=== PATIENT | female | born 1930 | race Two or more races ===

== ENCOUNTER 2017-10-22 13:49 | Emergency (ER) | payer MEDICARE, OTHER ==
[~2017-10-22] VITALS: Ht 170.2 cm; Wt 81.6 kg
[2017-10-22 14:03] VITALS: BP 114/60
[2017-10-22] MEDS ORDERED: DIATR MEGLU/DIATRIZOATE SODIUM 30 ML BOTTLE (GASTROGRAPHIN) ONE (14:38)
--- NOTE | 2017-10-22 16:25 | NUR ---
CALLED [facility] FOR TRANSPORT TO [facility], ETA 183, TRIP #[id number]
--- NOTE | 2017-10-22 16:54 | NUR ---
CALLED [facility] FOR TRANSPORT, NO UNITS AVAILABLE.
--- NOTE | 2017-10-22 16:55 | NUR ---
CALLED [facility] FOR TRANSPORT, 2 HOUR ETA, WILL CALL ANOTHER COMPANY.
--- NOTE | 2017-10-22 16:58 | NUR ---
CALLED [facility] FOR TRANSPORT, 1830 ETA GIVEN, WILL CALL ANOTHER COMPANY.
--- NOTE | 2017-10-22 17:02 | NUR ---
CALLED [facility], ETA 30 MIN, ACCEPTED THIS TRANSPORT BECAUSE [facility] ETA WAS 1830.
--- NOTE | 2017-10-22 17:39 | NUR ---
CALLED [facility] TO CANCEL TRANSPORT.
== END 2017-10-22 17:38 ==
LOC: ER 14:03 → EDBD 14:03 → ER 17:38
DX: Z93.1 Gastrostomy status (principal); E11.9 Type 2 diabetes mellitus without complications; F41.9 Anxiety disorder, unspecified; I10 Essential (primary) hypertension; E03.9 Hypothyroidism, unspecified; F03.90 Unspecified dementia, unspecified severity, without behavioral disturbance, psychotic disturbance, mood disturbance, and anxiety; Z86.73 Personal history of transient ischemic attack (TIA), and cerebral infarction without residual deficits
CPT/HCPCS: 74018; A4606; Q9963; Z7610

== ENCOUNTER 2020-01-11 21:44 | Emergency (ER) | payer MEDICARE, OTHER ==
[~2020-01-11] VITALS: Ht 170.2 cm; Wt 81.6 kg
--- NOTE | 2020-01-11 21:59 | NUR ---
PATIENT CAME TO ER BED 10 FROM [facility] C/O AFIB RVR FROM EKG WITH NO SYMPTOMS AND A BASELINE OF AAOX1. PATIENT DOES HAVE TREMORS. PATIENT DOES NOT HAVE SOB. BREATHING EVENLY AND UNLABORED ON ROOM AIR. CONNECTED TO PEST CONTROL SPECIALIST.
[2020-01-11 22:03] LABS: BASOPHILS % (AUTO) 0.4 % (0.0-2.0); HEMATOCRIT 43 % (33-45); HEMOGLOBIN 13.9 g/dL (11.5-14.8); LYMPHOCYTES # (AUTO) 1.7 /CMM (0.8-4.8); LYMPHOCYTES % (AUTO) 23.3 % (20.0-44.0); MEAN CORPUSCULAR HGB CONC 33 g/dl (31.0-36.0); MEAN CORPUSCULAR VOLUME 94 fL (82-100); MONOCYTES # (AUTO) 0.6 /CMM (0.1-1.30); MONOCYTES % (AUTO) 8.2 % (2.0-12.0); NEUTROPHILS # (AUTO) 4.6 /CMM (1.8-8.9); NEUTROPHILS % (AUTO) 63.1 % (43.0-81.0); PLATELET COUNT (AUTO) 140 /CMM (150-450); RED BLOOD CELL COUNT(AUTO) 4.54 MIL/uL (4.0-5.2); WHITE BLOOD COUNT (AUTO) 7.3 K/uL (4.3-11.0)
--- NOTE | 2020-01-11 22:13 | NUR ---
CALLED FOR EKG MACHINE, ER EKG MACHINE IS BROKE.
[2020-01-11 22:14] LABS: CALCIUM, SERUM 9.3 mg/dL (8.5-10.1); CARBON DIOXIDE 31 mmol/L (21-32); CHLORIDE 111 mmol/L (98-107); CREATININE 0.8 mg/dL (0.6-1.3); GLUCOSE 132 mg/dL (74-106); POTASSIUM 3.4 mmol/L (3.5-5.1); SODIUM SERUM 146 mmol/L (136-145); UREA NITROGEN, BLOOD 20 mg/dL (7-18)
--- NOTE | 2020-01-11 22:31 | NUR ---
AT BEDSIDE FOR EKG.
[2020-01-11] MEDS ORDERED: LORAZEPAM INJ 2 MG/ML VIAL ONE (22:44)
[2020-01-11] MEDS: LORAZEPAM INJ 2 MG/ML VIAL IV ONE (22:48)
[2020-01-11] MEDS: IV NS 0.9% 500 ML BAG IV ONE (23:00)
--- NOTE | 2020-01-11 23:24 | NUR ---
[facility] CALLED FOR BLS TRANSPORT. ETA 2 HRS.
[2020-01-11 23:37] LABS: THYROID STIMULATING HORMONE 3.686 uIU/mL (0.358-3.74)
--- NOTE | 2020-01-12 00:32 | NUR ---
REPORT GIVEN TO TRANSPORT TEAM FOR [facility]. AND TRANSFERRING RESPONSIBILITY.
--- NOTE | 2020-01-12 00:33 | NUR ---
REPORT GIVEN TO KARIE DUNCAN AT [facility] FOR [facility].
[2020-01-12 01:04] VITALS: BP 134/76
== END 2020-01-12 01:05 | disposition home or self-care (01) ==
LOC: ER 21:45
DX: R25.1 Tremor, unspecified (principal); I10 Essential (primary) hypertension; E11.9 Type 2 diabetes mellitus without complications; F41.9 Anxiety disorder, unspecified; E03.9 Hypothyroidism, unspecified; F03.90 Unspecified dementia, unspecified severity, without behavioral disturbance, psychotic disturbance, mood disturbance, and anxiety; Z86.73 Personal history of transient ischemic attack (TIA), and cerebral infarction without residual deficits
CPT/HCPCS: 36415; 71045; 80048; 84439; 84443; 84484; 85025; 93005 ×2; 96374; 99285; J2060; J7040

== ENCOUNTER 2020-08-05 19:36 | Inpatient (IN) | payer MEDICARE, OTHER ==
[~2020-08-05] VITALS: Ht 162.6 cm; Wt 77.2 kg
--- NOTE | 2020-08-05 19:45 | NUR ---
PT BIBEMS C/O NON HEALING LEFT HEEL WOUND. PT AAOX0 NON VERBAL. PT BREATHING EVENLY, BUT EXPIRATORY WHEEZES ARE NOTED. PT STATING 99% ON 1L VIA NC. PT CONTRACTED AND AFEBRILE. WOUND ON LEFT HEEL HAS GREENISH AND DARK BROWN COLORING, NO FOUL ODOR NOTED. PT HAS SACRAL WOUND WITH SOME SLOUGHING NOTED. PT ATTACHED TO MONITOR AND POX. MADE COMFORTABLE WITH BLANKET AND CALLLIGHT WITHIN REACH. Addendum: 08/06/20 at 0713 by DONOVAN PT BIBEMS C/O NON HEALING LEFT HEEL WOUND. PT AAOX0 NON VERBAL. PT BREATHING EVENLY, BUT EXPIRATORY WHEEZES ARE NOTED. PT STATING 99% ON 1L VIA NC. PT CONTRACTED AND AFEBRILE. WOUND ON LEFT HEEL HAS GREENISH AND DARK BROWN COLORING, NO FOUL ODOR NOTED. PT ATTACHED TO MONITOR AND POX. MADE COMFORTABLE WITH BLANKET AND CALLLIGHT WITHIN REACH.
[2020-08-05] MEDS ORDERED: NS 0.9% IV ONE (20:30)
[2020-08-05] MEDS ORDERED: VANCOMYCIN 1 GM in IV D5W 250 ML IV ONE (20:30)
[2020-08-05] MEDS ORDERED: PIPERACILLIN /TAZOBACTAM 3.375 G in IV D5W 50 ML IV ONE (20:30)
[2020-08-05 20:37] LABS: BASOPHILS % (AUTO) 0.4 % (0.0-2.0); EOSINOPHILS % (AUTO) 0.8 % (0.0-6.0); HEMATOCRIT 44 % (33-45); HEMOGLOBIN 13.8 g/dL (11.5-14.8); LYMPHOCYTES # (AUTO) 0.9 /CMM (0.8-4.8); LYMPHOCYTES % (AUTO) 8.6 % (20.0-44.0); MEAN CORPUSCULAR HGB CONC 32 g/dl (31.0-36.0); MEAN CORPUSCULAR VOLUME 97 fL (82-100); MONOCYTES # (AUTO) 1.2 /CMM (0.1-1.30); MONOCYTES % (AUTO) 10.8 % (2.0-12.0); NEUTROPHILS # (AUTO) 8.8 /CMM (1.8-8.9); NEUTROPHILS % (AUTO) 79.4 % (43.0-81.0); PLATELET COUNT (AUTO) 178 /CMM (150-450); RED BLOOD CELL COUNT(AUTO) 4.53 MIL/uL (4.0-5.2)
--- NOTE | 2020-08-05 20:43 | NUR ---
xray at bedside
[2020-08-05] MEDS ORDERED: PIPERACILLIN /TAZOBACTAM 3.375 G VIAL IV ONE (20:45)
[2020-08-05] MEDS ORDERED: VANCOMYCIN 1 GM VIAL ONE (20:45)
[2020-08-05 20:52] LABS: CALCIUM, SERUM 8.8 mg/dL (8.5-10.1); CREATININE 0.8 mg/dL (0.6-1.3); POTASSIUM 4.2 mmol/L (3.5-5.1)
--- NOTE | 2020-08-05 20:59 | NUR ---
rt hand 20g
--- NOTE | 2020-08-05 21:00 | NUR ---
blood obtained and sent to lab
--- NOTE | 2020-08-05 21:05 | NUR ---
us at bedside.
[2020-08-05 21:11] LABS: ALBUMIN 2.4 g/dL (3.4-5.0); BILIRUBIN,DIRECT 0.2 mg/dL (0.0-0.2); BILIRUBIN,TOTAL 0.5 mg/dL (0.2-1.0); TOTAL PROTEIN, SERUM 6.6 g/dL (6.4-8.2)
--- NOTE | 2020-08-05 22:04 | NUR ---
covid swabs and urine sent to lab
[2020-08-05 22:40] LABS: BILIRUBIN,URINE Negative (NEGATIVE); COLOR,URINE YELLOW (YELLOW); LEUKOCYTE ESTERASE ,URINE Small (NEGATIVE); NITRITE, URINE Negative (NEGATIVE); PROTEIN,URINE Trace mg/dl (NEGATIVE); UGLUCOSE 500 MG/DL mg/dL (NEGATIVE)
[2020-08-05 23:08] LABS: BACTERIA,URINE 1+ /HPF (None Seen); RBC,URINE NONE SEEN /HPF (0-2); SQUAMOUS EPITHELIAL CELL,UR Few /HPF (None Seen)
[2020-08-05] MEDS ORDERED: Z GUARD REMEDY 2 OZ OINT TP PRN (23:30)
[2020-08-05] MEDS ORDERED: ZOLPIDEM TARTRATE 5 MG TABLET PO PRN (23:30)
[2020-08-05] MEDS ORDERED: MAG HYDROX/AL HYDROX/SIMETH 30 ML UDC PO PRN (23:30)
[2020-08-05] MEDS ORDERED: ENOXAPARIN SODIUM 30 MG/0.3 ML DISP.SYRIN SQ SCH (23:30)
[2020-08-05] MEDS ORDERED: ONDANSETRON HCL/PF 4 MG/2 ML VIAL IVP PRN (23:30)
[2020-08-05] MEDS: IV NS 0.9% 1,000 ML IV PRN (23:30)
[2020-08-05] MEDS ORDERED: MAGNESIUM HYDROXIDE 30 ML UDC PO PRN (23:30)
[2020-08-05] MEDS ORDERED: HYDROCODONE/APAP 5/325MG TABLET PO PRN (23:30)
--- NOTE | 2020-08-05 23:41 | NUR ---
CALL FROM LAB. RAPID COVID NEGATIVE.
[2020-08-05] MEDS ORDERED: ENOXAPARIN SODIUM 30 MG/0.3 ML DISP.SYRIN ONE (23:43)
--- NOTE | 2020-08-06 00:15 | NUR ---
pt readjusted and made comfortable
[2020-08-06] MEDS ORDERED: PIPERACILLIN /TAZOBACTAM 3.375 G in IV D5W 50 ML IV SCH ×2 (03:00→12:00)
[2020-08-06] MEDS ORDERED: PIPERACILLIN /TAZOBACTAM 3.375 G VIAL IV ONE (03:08)
--- NOTE | 2020-08-06 04:35 | NUR ---
pt changed and made comfortable
[2020-08-06 04:37] LABS: BASOPHILS % (AUTO) 0.2 % (0.0-2.0); EOSINOPHILS % (AUTO) 2.4 % (0.0-6.0); HEMATOCRIT 42 % (33-45); HEMOGLOBIN 13.7 g/dL (11.5-14.8); LYMPHOCYTES # (AUTO) 1.2 /CMM (0.8-4.8); LYMPHOCYTES % (AUTO) 12.6 % (20.0-44.0); MEAN CORPUSCULAR HGB CONC 32 g/dl (31.0-36.0); MEAN CORPUSCULAR VOLUME 96 fL (82-100); MONOCYTES # (AUTO) 1.3 /CMM (0.1-1.30); MONOCYTES % (AUTO) 12.8 % (2.0-12.0); NEUTROPHILS # (AUTO) 7.1 /CMM (1.8-8.9); PLATELET COUNT (AUTO) 175 /CMM (150-450); WHITE BLOOD COUNT (AUTO) 9.8 K/uL (4.3-11.0)
[2020-08-06 05:05] LABS: ALBUMIN 2.5 g/dL (3.4-5.0); BILIRUBIN,TOTAL 0.8 mg/dL (0.2-1.0); CREATININE 0.7 mg/dL (0.6-1.3); MAGNESIUM 2.3 mg/dL (1.8-2.4); PHOSPHORUS 2.7 mg/dL (2.5-4.9); POTASSIUM 4.6 mmol/L (3.5-5.1); TOTAL PROTEIN, SERUM 6.5 g/dL (6.4-8.2)
[2020-08-06] MEDS ORDERED: ATOR10TA GT (05:25)
[2020-08-06] MEDS ORDERED: LEVO25TA7 GT (05:25)
[2020-08-06] MEDS ORDERED: CLON0.1T GT (05:25)
[2020-08-06] MEDS ORDERED: LEVE250T2 GT (05:25)
[2020-08-06] MEDS ORDERED: PANT40TA49 GT (05:25)
[2020-08-06] MEDS ORDERED: LOSA50TA39 GT (05:25)
[2020-08-06] MEDS ORDERED: APIX5TAB4 GT (05:25)
[2020-08-06] MEDS ORDERED: VALB80CA GT (05:25)
[2020-08-06] MEDS ORDERED: METO25TA6 GT (05:25)
[2020-08-06] MEDS ORDERED: CLONIDINE HCL 0.1 MG TABLET GT PRN (05:30)
--- NOTE | 2020-08-06 07:05 | NUR ---
gave report to reagan baeza for kunal
[2020-08-06] MEDS ORDERED: LEVOTHYROXINE SODIUM 50 MCG TABLET ONE (08:15)
[2020-08-06] MEDS ORDERED: LEVETIRACETAM (250 MG) 250 MG TABLET PO ONE ×2 (08:16→16:06)
[2020-08-06] MEDS ORDERED: LEVOTHYROXINE SODIUM 25 MCG TABLET ONE (08:16)
[2020-08-06] MEDS ORDERED: PANTOPRAZOLE 40 MG TABLET.DR PO ONE (08:16)
[2020-08-06] MEDS ORDERED: METOPROLOL TARTRATE 25 MG TABLET ONE ×2 (08:16→16:06)
[2020-08-06] MEDS: LEVOTHYROXINE SODIUM 25 MCG TABLET GT SCH (08:24)
[2020-08-06] MEDS: PANTOPRAZOLE 40 MG TABLET.DR PO SCH (08:25)
[2020-08-06] MEDS: LEVETIRACETAM (250 MG) 250 MG TABLET PO SCH ×2 (08:25→16:11)
[2020-08-06] MEDS: METOPROLOL TARTRATE 25 MG TABLET GT SCH ×2 (08:25→16:08)
[2020-08-06] MEDS: PIPERACILLIN /TAZOBACTAM 3.375 G in IV D5W 100 ML IV SCH ×2 (08:32→16:11)
--- NOTE | 2020-08-06 09:00 | NUR ---
PATIENT SEEN AND EVALUATED BY WOUND NURSE. TURNED AND REPOSITIONED, PERICARE PROVIDED.
--- NOTE | 2020-08-06 10:51 | NUR ---
WOUND CARE CONSULT: PT PRESENTS WITH LOWER EXTREMITY CONTRACTURES, LEFT HEEL AND FOOT DRY ULCERS, PRESENT ON ADMISSION. DR WALLS NOTIFIED OF DPM CONSULT REQUEST. RECOMMENDATIONS MADE FOR SKIN PROTECTION. DISCUSSED WITH NURSING STAFF. PT IS INCONTINENT OF LOOSE STOOL. MD IN AGREEMENT WITH PLAN OF CARE.
--- NOTE | 2020-08-06 11:05 | NUR ---
NOTED PATIENT BLOOD IN STOOL, WILL SEND FECAL SAMPLE.
[2020-08-06] MEDS: GLUCERNA 1.5 1,000 ML BOTTLE NG PRN (11:33)
[2020-08-06 11:51] LABS: OCCULT BLOOD STOOL POSITIVE (NEGATIVE)
[2020-08-06] MEDS: IV NS 0.9% 1,000 ML IV PRN (12:25)
[2020-08-06] MEDS ORDERED: APIXABAN 5 MG TABLET ONE (16:06)
[2020-08-06] MEDS ORDERED: APIXABAN 5 MG TABLET GT SCH (17:00)
--- NOTE | 2020-08-06 17:03 | NUR ---
PATIENT CONTINUES ON IV FLUIDS, GT-FEEDING INFUSING AT 40ML/HR. HOB ELEVATED. VS STABLE. TURNED AND REPOSITIONED, DIAPER CHANGED. NO DISTRESS NOTED. KEPT COMFORTABLE.
--- NOTE | 2020-08-06 19:05 | NUR ---
REC'D REPORT FROM DAKOTA LI FOR [facility]
--- NOTE | 2020-08-06 19:44 | NUR ---
Roc gan in [facility] - 08/06/20 at 2332 by DONOVAN CALLED LAB FOR VANCO TROUGH DRAW
[2020-08-06] MEDS ORDERED: VANCOMYCIN 1 GM VIAL ONE (20:16)
[2020-08-06] MEDS: VANCOMYCIN 1 GM in IV D5W 250 ML IV SCH (20:30)
[2020-08-06] MEDS: ATORVASTATIN 10 MG TABLET GT SCH (21:30)
[2020-08-06] MEDS ORDERED: Valbenazine Tosylate (Ingrezza) 80 MG GT SCH (22:00)
--- NOTE | 2020-08-06 23:49 | NUR ---
GAVE REPORT TO DAKOTA CARDONA FOR [facility]
--- NOTE | 2020-08-07 00:15 | NUR ---
MS/RN OPENING NOTES RECEIVED REPORT FROM ER NURSE CRISTOBAL AT 2350HRS PATIENT COMING TO ROOM 200. PATIENT ARRIVED TO UNIT AT 0015HRS WITH NO INJURIES DURING TRANSPORT. PATIENT SAFELY TRANSFERRED TO BED. PATIENT IS ALERT AND ORIENTED X 1, EYES OPEN. PATIENTS BREATHING IS EVEN AND UNLABORED. NO SIGNS OF SOB OR RESPIRATORY DISTRESS NOTED. PATIENT HAS IV ACCESS ON RIGHT HAND #20G INTACT FLUSHING WELL. SAFETY MEASURES ARE IN PLACE, BED IS LOCKED AND PLACED IN THE LOWEST POSITION, CALL LIGHT IS WITHIN REACH. WILL CONTINUE TO MONITOR.
[2020-08-07] MEDS ORDERED: MEROPENEM 500 MG VIAL IV ONE (03:58)
[2020-08-07] MEDS: IV NS 0.9% 1,000 ML IV PRN ×2 (04:46→21:06)
[2020-08-07] MEDS ORDERED: MEROPENEM 500 MG in IV NS 0.9% 50 ML IV SCH ×2 (05:00→13:00)
[2020-08-07 05:18] VITALS: BP 120/65
--- NOTE | 2020-08-07 06:58 | NUR ---
MS/RN NOTES PER MD EDDY, HOLD PATIENT G TUBE FEEDING FOR NOW. ORDERS CARRIED OUT. PATIENT STABLE.
--- NOTE | 2020-08-07 06:59 | NUR ---
MS/RN CLOSING NOTES PATIENT RESTING IN BED. PATIENT IS ALERT AND ORIENTED X 1. PATIENT BREATHING IS EVEN AND UNLABORED. NO SIGNS OF SOB OR RESPIRATORY NOTED. PATIENT G TUBE FEEDING HAS BEEN HELD FOR NOW MD ORDERS. PATIENT HAS IV ACCESS ON RIGHT HAND #20G RUNNING NS AT 75 CC/HR. ALL NEED HAVE BEEN MET DURING SHIFT. SAFETY MEASURES ARE IN PLACE, BED IS LOCKED AND PLACED IN THE LOWEST POSITION, CALL LIGHT IS WITHIN REACH. WILL ENDORSE CARE TO DAY SHIFT NURSE.
[2020-08-07 07:20] LABS: BASOPHILS % (AUTO) 0.2 % (0.0-2.0); EOSINOPHILS % (AUTO) 4.4 % (0.0-6.0); HEMATOCRIT 37 % (33-45); HEMOGLOBIN 12.2 g/dL (11.5-14.8); LYMPHOCYTES # (AUTO) 1.4 /CMM (0.8-4.8); LYMPHOCYTES % (AUTO) 13.9 % (20.0-44.0); MEAN CORPUSCULAR HGB CONC 33 g/dl (31.0-36.0); MEAN CORPUSCULAR VOLUME 95 fL (82-100); MONOCYTES % (AUTO) 9.3 % (2.0-12.0); NEUTROPHILS # (AUTO) 7.5 /CMM (1.8-8.9); NEUTROPHILS % (AUTO) 72.2 % (43.0-81.0); PLATELET COUNT (AUTO) 158 /CMM (150-450); RED BLOOD CELL COUNT(AUTO) 3.95 MIL/uL (4.0-5.2); WHITE BLOOD COUNT (AUTO) 10.4 K/uL (4.3-11.0)
[2020-08-07 08:00] VITALS: BP 97/66
[2020-08-07 08:16] LABS: CALCIUM, SERUM 8.6 mg/dL (8.5-10.1); CREATININE 0.6 mg/dL (0.6-1.3); POTASSIUM 3.7 mmol/L (3.5-5.1)
[2020-08-07] MEDS: METOPROLOL TARTRATE 25 MG TABLET GT SCH ×2 (09:00→16:42)
[2020-08-07] MEDS: LEVOTHYROXINE SODIUM 25 MCG TABLET GT SCH (09:19)
[2020-08-07] MEDS: LEVETIRACETAM (250 MG) 250 MG TABLET PO SCH ×2 (09:19→16:37)
[2020-08-07] MEDS: PANTOPRAZOLE 40 MG TABLET.DR PO SCH (09:19)
--- NOTE | 2020-08-07 11:46 | NUR ---
PT'S STAT PT-INR AND PTT RESULT IS STILL PENDING AT THIS TIME.NOTIFIED LAB AND SPOKE TO BRETT OF LAB AND MADE AWARE TO PUT IN THE RESULTS STAT.
[2020-08-07] MEDS ORDERED: HEPARIN SODIUM, PORCINE 5000 UNITS/1 ML VIAL IV ONE (12:30)
[2020-08-07] MEDS: HEPARIN INFUSION/D5W 500 ML IV PRN (12:38)
[2020-08-07] MEDS: GLUCERNA 1.5 1,000 ML BOTTLE NG PRN (16:28)
[2020-08-07] MEDS: MEROPENEM 500 MG in IV NS 0.9% 100 ML IV SCH (17:47)
[2020-08-07 18:52] VITALS: BP 119/58
--- NOTE | 2020-08-07 19:30 | NUR ---
MS/RN OPENING NOTES RECEIVED PATIENT RESTING IN BED. PATIENT IS ALERT AND ORIENTED X 1. PATIENT BREATHING IS EVEN AND UNLABORED. NO SIGNS OF SOB OR RESPIRATORY NOTED. PATIENT G TUBE FEEDING IN PLACE NO RESIDUAL. PATIENT HAS IV ACCESS ON RIGHT HAND #20G RUNNING NS AT 75 CC/HR. SAFETY MEASURES ARE IN PLACE, BED IS LOCKED AND PLACED IN THE LOWEST POSITION, CALL LIGHT IS WITHIN REACH. WILL CONTINUE TO MONITOR THROUGH OUT SHIFT.
--- NOTE | 2020-08-07 19:32 | NUR ---
LAB CALLED FOR PT'S PTT RESULT SAYING IT WAS TOO HIGH :170 AND LAB WILL DO REDRAW.
--- NOTE | 2020-08-07 19:33 | NUR ---
PT HAS NO ACTIVE BLEEDING NOTED.WILL MONITOR.ENDORSED TO GENERAL OPHTHALMOLOGIST CARE.
[2020-08-07 20:00] VITALS: BP 126/75
[2020-08-07] MEDS: VANCOMYCIN 1 GM in IV D5W 250 ML IV SCH (21:02)
--- NOTE | 2020-08-07 21:30 | NUR ---
CRITICAL LAB RESULTS MS/RN NOTES LAB CALLED FOR RESULTS OF REPEAT DRAW OF PTT VALUE GREATER THAN 170 NEWS PRODUCTION ASSISTANT RUM PROCESSING OPERATOR CRISTOBAL NOTIFIED, ORDERED TO HOLD HEPARIN GTT. ORDERS CARRIED OUT HEPARIN GTT STOPPED SINCE 1930HRS WILL CONTINUE TO MONITOR PATIENT
[2020-08-07] MEDS: ATORVASTATIN 10 MG TABLET GT SCH (22:22)
[2020-08-08] MEDS: MEROPENEM 500 MG in IV NS 0.9% 100 ML IV SCH ×2 (04:38→17:37)
[2020-08-08] MEDS: ACETAMINOPHEN 325 MG TABLET PO PRN ×2 (04:49→23:30)
--- NOTE | 2020-08-08 05:00 | NUR ---
MS/RN NOTES PATIENT NOTED TO BE IN MILD DISCOMFORT. PATIENT GIVEN TYLENOL 650 MG. WILL CONTINUE TO MONITOR.
[2020-08-08 06:42] LABS: BASOPHILS % (AUTO) 0.4 % (0.0-2.0); EOSINOPHILS % (AUTO) 5.1 % (0.0-6.0); HEMATOCRIT 35 % (33-45); HEMOGLOBIN 11.8 g/dL (11.5-14.8); LYMPHOCYTES # (AUTO) 1.3 /CMM (0.8-4.8); LYMPHOCYTES % (AUTO) 17.8 % (20.0-44.0); MEAN CORPUSCULAR HGB CONC 33 g/dl (31.0-36.0); MEAN CORPUSCULAR VOLUME 94 fL (82-100); MONOCYTES # (AUTO) 0.8 /CMM (0.1-1.30); MONOCYTES % (AUTO) 10.2 % (2.0-12.0); NEUTROPHILS % (AUTO) 66.5 % (43.0-81.0); PLATELET COUNT (AUTO) 157 /CMM (150-450); RED BLOOD CELL COUNT(AUTO) 3.74 MIL/uL (4.0-5.2); WHITE BLOOD COUNT (AUTO) 7.5 K/uL (4.3-11.0)
--- NOTE | 2020-08-08 06:50 | NUR ---
MS/RN CLOSING NOTES PATIENT RESTING IN BED. PATIENT IS ALERT AND ORIENTED X 1. PATIENT BREATHING IS EVEN AND UNLABORED. NO SIGNS OF SOB OR RESPIRATORY NOTED. PATIENT G TUBE FEEDING IN PLACE 30CC RESIDUAL. PATIENT HAS IV ACCESS ON RIGHT HAND #20G RUNNING NS AT 75 CC/HR LEFT HAND IV FLUSHING WELL. NO SIGNS OF ACTIVE BLEEDING NOTED. ALL NEEDS MET DURING SHIFT. SAFETY MEASURES ARE IN PLACE, BED IS LOCKED AND PLACED IN THE LOWEST POSITION, CALL LIGHT IS WITHIN REACH. WILL ENDORSE CARE TO DAY SHIFT NURSE.
--- NOTE | 2020-08-08 07:00 | NUR ---
RN OPENING NOTE RECEIVED PT RESTING IN BED AT THIS TIME. AOX1. NON VERBAL. NO SOB NOTED, NO S/S OF ANY APPARENT DISTRESS NOTED, NO S/O PAIN AT THIS TIME. PT NOTED ON OXYGEN @2LPM VIA NC. IV ACCESS NOTED IN LFA G#20, INTACT, PATENT AND FLUSHING WELL.G-TUBE IN PLACE WITH NO RESIDUAL NOTED. ASPIRATIONS AND SAFETY PRECAUTIONS IN PLACE AND MAINTAINED AT ALL TIMES. BED IN LOWEST LOCKED POSITION, SIDE RAILS UP, HOB ELEVATED, TABLE AND CALL LIGHT WITHIN REACH. WILL CONTINUE TO MONITOR.
[2020-08-08 07:14] LABS: CALCIUM, SERUM 8.4 mg/dL (8.5-10.1); CREATININE 0.6 mg/dL (0.6-1.3); POTASSIUM 3.8 mmol/L (3.5-5.1)
[2020-08-08 08:00] VITALS: BP 129/70
[2020-08-08] MEDS: PANTOPRAZOLE 40 MG TABLET.DR PO SCH (08:28)
[2020-08-08] MEDS: LEVETIRACETAM (250 MG) 250 MG TABLET PO SCH ×2 (08:28→16:47)
[2020-08-08] MEDS: LEVOTHYROXINE SODIUM 25 MCG TABLET GT SCH (08:29)
[2020-08-08] MEDS: METOPROLOL TARTRATE 25 MG TABLET GT SCH ×2 (08:30→16:47)
[2020-08-08] MEDS: IV NS 0.9% 1,000 ML IV PRN (13:08)
[2020-08-08] MEDS: HEPARIN INFUSION/D5W 500 ML IV PRN (13:33)
--- NOTE | 2020-08-08 13:35 | NUR ---
APTT 29.1, PER PHARMACY RESUME HEPARIN @1350UNITS/HR. ORDERS READ BACK AND CARRIED OUT. WILL CONTINUE TO MONITOR AND CONTINUE WITH PLAN OF CARE
[2020-08-08 16:00] VITALS: BP 129/67
[2020-08-08] MEDS: GLUCERNA 1.5 1,000 ML BOTTLE NG PRN (17:05)
--- NOTE | 2020-08-08 17:15 | NUR ---
RECEIVED ORDERS FOR MIDLINE INSERTION FROM TWYLA RAMIREZ NURSE EMBRYOLOGY TEACHER MADE AWARE, ENTERED ORDERS. WILL CONTINUE WITH PLAN OF CARE
--- NOTE | 2020-08-08 18:38 | NUR ---
RN CLOSING NOTES PT RESTING IN BED COMFORTABLY AT THIS TIME AT THIS TIME. PT REMAINED STABLE THROUGHOUT SHIFT. PT ON OXYGEN @ 2LPM VIA NC SATURATING @ 100% AT THIS TIME. ALL CARE, NEED, MEDICATIONS AND TREATMENT ADMINISTERED ANTICIPATED PER ORDER. PT KEPT CLEAN AND DRY. BED BATH GIVEN, LINEN CHANGED AND KEPT CLEAN. PT REPOSITIONED Q2HR AND PRN. ASPIRATION, RESPIRATION, SEIZURE AND SAFETY PRECAUTION IN PLACE AND MAINTAINED AT ALL TIMES. BED IN LOWEST LOCKED POSITION, HOB ELEVATED, SIDE RAILS UP X 2, CALL LIGHT AND TABLE WITHIN REACH. WILL ENDORSE TO MANAGER MECHANICAL MAINTENANCE NURSE FOR [facility]
--- NOTE | 2020-08-08 19:30 | NUR ---
MS/RN OPENING NOTES RECEIVED PATIENT RESTING IN BED. PATIENT IS ALERT AND ORIENTED X 1, NON VERBAL. PATIENT BREATHING IS EVEN AND UNLABORED. NO SIGNS OF SOB OR RESPIRATORY NOTED. PATIENT G TUBE FEEDING IN PLACE 25CC RESIDUAL. PATIENT HAS IV ACCESS ON RIGHT HAND #20G RUNNING NS AT 75 CC/HR AND SUMMER MIDLINE HEPARIN GTT. NO SIGNS OF ACTIVE BLEEDING NOTED. SAFETY MEASURES ARE IN PLACE, BED IS LOCKED AND PLACED IN THE LOWEST POSITION, CALL LIGHT IS WITHIN REACH. WILL CONTINUE TO MONITOR THROUGH OUT SHIFT.
[2020-08-08 20:00] VITALS: BP 154/72
--- NOTE | 2020-08-08 20:00 | NUR ---
MED/RN NOTES 1944: PATIENT PTT RESULTS 60 NO CHANGES NO ACTIVE BLEEDING NOTES WILL CONTINUE TO MONITOR
[2020-08-08] MEDS: VANCOMYCIN 1 GM in IV D5W 250 ML IV SCH (21:33)
[2020-08-08] MEDS: ATORVASTATIN 10 MG TABLET GT SCH (22:39)
--- NOTE | 2020-08-08 23:26 | NUR ---
TELE/RN NOTES REPORT GIVEN TO DAKOTA FRANKLIN FOR [facility] PATIENT GOING TO ROOM 312
--- NOTE | 2020-08-09 00:05 | NUR ---
MS/RN NOTES PATIENT TRANSFERRED TO [address] [place] [address] [id number].
--- NOTE | 2020-08-09 00:10 | NUR ---
MS RN NOTES - TRANSFER FROM MS2 TO 3W RECEIVED REPORT FROM DULCE DUNCAN. PATIENT TRANSFERRED TO 3W VIA BED. PATIENT A/O X1; OPENS EYES TO NAME, NONVERBAL, MOANS. ON O2 2LPM VIA NASAL CANNULA; WHEEZING NOTED. GT PEG PATENT AND INTACT; GLUCERNA 1.2 @ 40ML/HR. L HAND #20; PATENT AND INTACT. SUMMER MIDLINE PATENT AND INTACT. DULCE DUNCAN ENDORSED THAT PATIENT IS NOTED WITH BRIGHT RED BLOODY BM. ASPIRATION AND SAFETY MEASURES IN PLACE: BED IN LOWEST LOCKED POSITION, SIDE RAILS UP X3, CALL LIGHT WITHIN REACH. WILL CONTINUE TO MONITOR.
--- NOTE | 2020-08-09 00:55 | NUR ---
MS RN NOTES - HEPARIN NOTIFIED [facility] SAP SOLUTION MANAGER CONSULTANT THAT PATIENT WAS NOTED WITH BRIGHT RED BLOODY STOOL. ORDERS TO HOLD HEPARIN FOR NOW. PTT @ 0745 ORDERED PER PROTOCOL.
[2020-08-09 01:00] VITALS: BP 137/72
[2020-08-09] MEDS: MEROPENEM 500 MG in IV NS 0.9% 100 ML IV SCH (05:52)
--- NOTE | 2020-08-09 06:41 | NUR ---
MS RN CLOSING NOTES PATIENT A/O X1; OPENS EYES TO NAME, NONVERBAL, MOANS. ON O2 2LPM VIA NASAL CANNULA; WHEEZING NOTED. GT PEG PATENT AND INTACT; GLUCERNA 1.2 @ 40ML/HR. R HAND #20; PATENT AND INTACT. SUMMER MIDLINE PATENT AND INTACT. ASPIRATION AND SAFETY MEASURES IN PLACE: BED IN LOWEST LOCKED POSITION, SIDE RAILS UP X3, CALL LIGHT WITHIN REACH. WILL ENDORSE SIL[facility]O TO ONCOMING MORNING RN.
[2020-08-09 07:08] LABS: BASOPHILS % (AUTO) 0.4 % (0.0-2.0); EOSINOPHILS % (AUTO) 3.8 % (0.0-6.0); HEMATOCRIT 37 % (33-45); HEMOGLOBIN 12.1 g/dL (11.5-14.8); LYMPHOCYTES # (AUTO) 1.3 /CMM (0.8-4.8); LYMPHOCYTES % (AUTO) 17.6 % (20.0-44.0); MEAN CORPUSCULAR HGB CONC 33 g/dl (31.0-36.0); MEAN CORPUSCULAR VOLUME 94 fL (82-100); MONOCYTES # (AUTO) 0.8 /CMM (0.1-1.30); NEUTROPHILS # (AUTO) 5.2 /CMM (1.8-8.9); NEUTROPHILS % (AUTO) 68.2 % (43.0-81.0); PLATELET COUNT (AUTO) 159 /CMM (150-450); RED BLOOD CELL COUNT(AUTO) 3.95 MIL/uL (4.0-5.2); WHITE BLOOD COUNT (AUTO) 7.6 K/uL (4.3-11.0)
[2020-08-09] MEDS: LEVOTHYROXINE SODIUM 25 MCG TABLET GT SCH (07:32)
[2020-08-09] MEDS: ACETAMINOPHEN 325 MG TABLET PO PRN (07:32)
[2020-08-09 08:00] VITALS: BP 150/75
[2020-08-09 08:01] LABS: CALCIUM, SERUM 8.7 mg/dL (8.5-10.1); CARBON DIOXIDE 28 mmol/L (21-32); CHLORIDE 108 mmol/L (98-107); CREATININE 0.5 mg/dL (0.6-1.3); GLUCOSE 152 mg/dL (74-106); POTASSIUM 3.9 mmol/L (3.5-5.1); SODIUM SERUM 142 mmol/L (136-145); UREA NITROGEN, BLOOD 13 mg/dL (7-18)
[2020-08-09] MEDS ORDERED: SULF1TAB48 PO (08:49)
[2020-08-09] MEDS: PANTOPRAZOLE 40 MG TABLET.DR PO SCH (09:11)
[2020-08-09] MEDS: METOPROLOL TARTRATE 25 MG TABLET GT SCH ×2 (09:11→16:13)
[2020-08-09] MEDS: LEVETIRACETAM (250 MG) 250 MG TABLET PO SCH ×2 (09:11→16:13)
[2020-08-09] MEDS ORDERED: VANCOMYCIN 1 GM in IV D5W 250 ML IV SCH (15:00)
[2020-08-09 16:14] VITALS: BP 154/98
--- NOTE | 2020-08-09 16:47 | NUR ---
RN CLOSING NOTE Patient is medically cleared for discharge. A/Ox1, opens eyes, non-verbal, saturating 100% on 2L nasal cannula. Skin assessed, photos taken and placed in chart. IV lines removed. ID band removed. All patient needs met, all due medications given, patient kept clean and dry throughout shift. Wound care completed as ordered. Report given to Nicole DUNCAN at [facility]. Patient left with EMS en route to [facility]. Addendum: 08/09/20 at 1652 by HEATH PAINTER RN GTube flushed and patent.
== END 2020-08-09 17:00 | DRG 299 ==
LOC: ER 19:42 → TRANSITION 21:47 → EDBD 21:47 → MEDSG2 08-06 23:42 → MED 08-09 00:45
PROVIDERS: ADMIT Nurse Practitioner Acute Care; ATTEND Internal Medicine
PROC: 05H633Z Insertion of Infusion Device into Left Subclavian Vein, Percutaneous Approach (ICD-10-PCS; principal; 2020-08-09)
PROC: B547ZZA Ultrasonography of Left Subclavian Vein, Guidance (ICD-10-PCS; 2020-08-09)
DX: E11.52 Type 2 diabetes mellitus with diabetic peripheral angiopathy with gangrene (principal); G93.41 Metabolic encephalopathy; L03.116 Cellulitis of left lower limb; E44.0 Moderate protein-calorie malnutrition; N39.0 Urinary tract infection, site not specified; L97.428 Non-pressure chronic ulcer of left heel and midfoot with other specified severity; N17.9 Acute kidney failure, unspecified; I70.262 Atherosclerosis of native arteries of extremities with gangrene, left leg; Z86.73 Personal history of transient ischemic attack (TIA), and cerebral infarction without residual deficits; F03.90 Unspecified dementia, unspecified severity, without behavioral disturbance, psychotic disturbance, mood disturbance, and anxiety; G40.909 Epilepsy, unspecified, not intractable, without status epilepticus; E11.621 Type 2 diabetes mellitus with foot ulcer; E03.9 Hypothyroidism, unspecified; E78.5 Hyperlipidemia, unspecified; F41.9 Anxiety disorder, unspecified; I10 Essential (primary) hypertension; M20.42 Other hammer toe(s) (acquired), left foot; M20.41 Other hammer toe(s) (acquired), right foot; R13.10 Dysphagia, unspecified; R62.7 Adult failure to thrive; Z66 Do not resuscitate; Z93.1 Gastrostomy status; E88.09 Other disorders of plasma-protein metabolism, not elsewhere classified; Z68.29 Body mass index [BMI] 29.0-29.9, adult; N13.9 Obstructive and reflux uropathy, unspecified; I70.244 Atherosclerosis of native arteries of left leg with ulceration of heel and midfoot; Z20.822 Contact with and (suspected) exposure to COVID-19; E86.0 Dehydration
CPT/HCPCS: 36415; 71045-TC; 73630-TC; 80048-TC; 80053-TC; 80061-TC; 80076-TC; 80202-TC; 81001; 82272-TC; 83605-TC; 83735-TC; 84100-TC; 84484-TC; 85025-TC; 85610-TC; 85652-TC; 85730-TC; 87040-TC; 87081-TC; 87086-TC; 93971-TC; A6403; G0378; J1644; J1650; J2185; J2405; J2543; J3370; J7030; J7060; U0003